=== PATIENT | male | born 1990 | race Caucasian/White ===

== ENCOUNTER 2016-12-29 15:34 | Inpatient (IN) | payer OTHER ==
[~2016-12-29] VITALS: Ht 182.9 cm; Wt 63.5 kg
[2016-12-29 17:15] VITALS: BP 130/86
[2016-12-29 17:25] LABS: *AMPHETAMINE, URINE NEGATIVE (NEGATIVE); *BARBITURATE, URINE NEGATIVE (NEGATIVE); *CANNABINOID, URINE POSITIVE (NEGATIVE); *COCCAINE, URINE POSITIVE (NEGATIVE); *OPIATE, URINE NEGATIVE (NEGATIVE); *PHENCYCLIDINE SCREEN,URINE NEGATIVE (NEGATIVE)
--- NOTE | 2016-12-29 17:30 | NUR ---
ADMISSION NOTE: 26 yo male admitted with ETOH and Adderall dependence. Pt is alert and oriented X4. Color good, skin warm and dry. Respirations even and unlabored. VS: B/P 130/86 P: 104 RR 18 T 97.6 Pulse OX 96%. Initial CIWA 6. Pt is 6 feet tall and weighs 140 pounds. Pt denies HI/SI. No prior detox/rehab admissions. Pt lives alone. Pt denies seizure history. NKA No home medications.Pt denies any psychiatric or medical problems. Pt denies having a PCP Skin is intact. Has several tattoos. Pt is a smoker. Smokes [address] Arevlao evaluated patient. Awaiting orders. Substance Use history: ETOH: Pt states he drinks a fifth and 1/2 a day of whisky X 4 months. Last drink today 1 shot and a beer@ 1410 Adderall: 30mg XR per day for 6 years. Last use 12-27-16 Cocaine: 1 or 2 lines twice a week for 1 year. Last use 3 line 12-28-16 Marijuana: 1 joint/day for 8 years. Last use 12-28-16
[2016-12-29] MEDS ORDERED: LOPERAMIDE HCL 2 MG CAPSULE PO PRN ×2 (18:45)
[2016-12-29] MEDS ORDERED: MAGNESIUM HYDROXIDE 30 ML LIQUID UDC PO PRN (18:45)
[2016-12-29] MEDS ORDERED: ONDANSETRON ODT 4 MG TAB.RAPDIS SL PRN (18:45)
[2016-12-29] MEDS ORDERED: DICYCLOMINE HCL 20 MG TABLET PO PRN (18:45)
[2016-12-29] MEDS ORDERED: ACETAMINOPHEN 325 MG TABLET PO PRN (18:45)
[2016-12-29] MEDS ORDERED: diphenhydrAMINE 25 MG/10 ML UDC PO PRN (18:45)
[2016-12-29] MEDS ORDERED: LORAZEPAM 1 MG TABLET PO PRN ×2 (18:45)
[2016-12-29] MEDS ORDERED: THIAMINE HCL 200 MG/2 ML VIAL IM ONE (18:45)
[2016-12-29] MEDS ORDERED: diphenhydrAMINE 1% CREAM 28.3 GM TUBE TP PRN (18:45)
[2016-12-29] MEDS ORDERED: MAG HYDROX/AL HYDROX/SIMETH 30 ML LIQUID UDC PO PRN (18:45)
[2016-12-29] MEDS ORDERED: ONDANSETRON 4 MG/2 ML VIAL IM PRN (18:45)
[2016-12-29] MEDS ORDERED: LORAZEPAM 2 MG/1 ML VIAL IM PRN (18:45)
[2016-12-29] MEDS ORDERED: MIRALAX 17 GM POWD.PACK PO PRN (18:45)
--- NOTE | 2016-12-29 19:05 | NUR ---
Start of Shift Patient Received. Patient is in group activities participating in a group meeting. Patient is a 26 year old male, admitted for ETOH Dependence under the care of Dr. Arevalo. Patient was placed on a 5 day Ativan taper with first dose to be administered at 2100. Patient verbalizes no known allergies, wishes to be full code, following a regular diet, placed on fall and seizure precautions. Skin is noted intact. Vitamin B1 injection endorsed over due to patient in group meeting. Admission CIWA noted to be 3. Patient also verbalizing generalized itching throughout the body. MD aware with new orders for STD Screening. All needs attended to promptly. Will continue plan of care as ordered.
--- NOTE | 2016-12-29 19:06 | NUR ---
END OF SHIFT NOTE: Report given to toe stapler nurse. 26 yo male admitted with ETOH and Adderall dependence. Pt is alert and oriented X4. Color good, skin warm and dry. Respirations even and unlabored. Pt placed on prn's only. Pt c/o "rash" all over body. Safety precautions observed. Call light within reach.
[2016-12-29 20:13] VITALS: BP 142/92
[2016-12-29 20:57] LABS: ALBUMIN 4.6 g/dL (3.4-5.0); BILIRUBIN,TOTAL 0.3 mg/dL (0.2-1.0); CALCIUM 9.1 mg/dL (8.5-10.1); CREATININE 1.3 mg/dL (0.6-1.3); POTASSIUM 4.1 mmol/L (3.5-5.1); TOTAL PROTEIN, SERUM 8.1 g/dL (6.4-8.2)
[2016-12-29] MEDS ORDERED: LORAZEPAM 1 MG TABLET PO SCH (21:00)
[2016-12-29 21:08] LABS: THYROID STIMULATING HORMONE 1.348 mIU/mL (0.358-3.740)
[2016-12-29 21:21] LABS: BASOPHILS % (AUTO) 0.9 % (0.0-2.0); EOSINOPHILS # (AUTO) 0.2 K/uL (0.0-0.7); EOSINOPHILS % (AUTO) 4.4 % (0.0-7.0); HEMATOCRIT 41.8 % (40.0-50.0); HEMOGLOBIN 14.6 g/dL (14.0-18.0); HIV-1 p24 ANTIGEN NON REACTIVE (NONREACTIVE); HIV-1/2 ANTIBODY NON REACTIVE (NONREACTIVE); LYMPHOCYTES # (AUTO) 1.6 K/uL (0.8-4.8); MEAN CORPUSCULAR HEMOGLOBIN 34.3 uug (27.0-31.0); MEAN CORPUSCULAR HGB CONC 35 g/dL (32.0-37.0); MEAN CORPUSCULAR VOLUME 97.9 fL (82.0-92.0); MONOCYTES # (AUTO) 0.4 K/uL (0.1-1.30); MONOCYTES % (AUTO) 7.2 % (0.0-11.0); NEUTROPHILS # (AUTO) 3.2 K/uL (1.8-8.9); NEUTROPHILS % (AUTO) 57.5 % (38.5-71.5); PLATELET COUNT (AUTO) 355 K/uL (150-450); RED BLOOD CELL COUNT(AUTO) 4.27 MIL/uL (4.70-6.10); RED CELL DISTRIBUTION WIDTH 12.7 % (11.5-14.5); WHITE BLOOD COUNT (AUTO) 5.4 K/uL (4.0-11.2)
[2016-12-29] MEDS: HYDROXYZINE PAMOATE 25 MG CAPSULE PO PRN (22:23)
[2016-12-29] MEDS: diphenhydrAMINE 50 MG CAPSULE PO PRN (22:24)
--- NOTE | 2016-12-29 22:30 | NUR ---
PRN Medication Administration Patient verbalizing increase anxiety and inability of falling asleep. PRN Vistaril and Benadryl administered. Will continue to monitor for effectiveness of medication.
[2016-12-30 00:10] VITALS: BP 118/62
--- NOTE | 2016-12-30 00:30 | NUR ---
PRN Medication Administration Patient is in bed sleeping. Breathing even and non labored. No signs of pain or discomfort. patient awakened for vitals and able to verbalize anxiety has subsided. PRN Vistaril noted to be effective. Patient able to fall back asleep. Will continue to monitor. Addendum: 12/30/16 at 0343 by CHARLES COYLE LVN PRN Medication Reassessment
[2016-12-30 04:20] VITALS: BP 117/69
--- NOTE | 2016-12-30 07:10 | NUR ---
End of Shift Patient is in bed sleeping. Breathing even and non labored. No signs of pain or discomfort noted. Patient continues on 5 day Ativan taper for ETOH Dependence. Patient was given PRN Vistaril and Benadryl with both medications noted to be effective. All needs attended to promptly. Will endorse to continue plan of care as ordered.
--- NOTE | 2016-12-30 07:15 | NUR ---
start of shift note: received pt from welder 2nd shift nurse pt is in stable condition no s/s of pain or discomfort. pt is in bed asleep, but able to arouse. [facility]/dependence. pt is to start a 5 day ativan taper, will monitor pt for any changes or A/R to taper medications. urine analysis for STD still pending. will encourage pt to join groups and activities. pts last ciwa 1 and slept 7 hours.
[2016-12-30] MEDS ORDERED: TUBERCULIN,PURIF.PROT.DERIV. 5 TU/0.1 ML TEST ID ONE (09:00)
[2016-12-30] MEDS: THIAMINE HCL 100 MG TABLET PO SCH (09:26)
[2016-12-30] MEDS: FOLIC ACID 1 MG TABLET PO SCH (09:26)
[2016-12-30] MEDS: MULTIVITAMINS,THERAPEUTIC TABLET PO SCH (09:26)
[2016-12-30] MEDS: LORAZEPAM 1 MG TABLET PO SCH ×4 (09:27→20:15)
[2016-12-30 09:33] VITALS: BP 115/76
--- NOTE | 2016-12-30 13:00 | NUR ---
CIWA DEFERRED PT WAS SLEEPING, V/S TAKEN AND WNL.
[2016-12-30 14:00] VITALS: BP 112/68
[2016-12-30 17:51] VITALS: BP 133/96
[2016-12-30] MEDS: IBUPROFEN 400 MG TABLET PO PRN (17:57)
[2016-12-30] MEDS: HYDROXYZINE PAMOATE 25 MG CAPSULE PO PRN (17:57)
--- NOTE | 2016-12-30 18:06 | NUR ---
PRN REASSESSMENT: PT VERBALIZED HE IS NOT FEELING WELL. RE-ASSESSED PT'S CIWA. CIWA TO BE NOTED AT 13. PRN ATIVAN 1 MG WAS ADMINISTERED, 400 MG OF MOTRIN AND 25 MG OF VISTARIL WAS ADMINISTERED. WILL RE-ASSESS PT EFFECTIVENESS OF MEDICATION. Addendum: 12/30/16 at 1841 by TRACI ROBLEDO RN PT EXHIBITED FLUSHING OF THE SKIN, VERBALIZED INCREASED ANXIETY, TREMULOUS, AND ITCHING PINS AND NEEDLES ON HIS GENERALIZED BODY.
[2016-12-30] MEDS ORDERED: LORAZEPAM 1 MG TABLET PO ONE (18:30)
--- NOTE | 2016-12-30 18:43 | NUR ---
END OF SHIFT NOTE/PRN RE-ASSESSMENT: PT IS ALERT AND ORIENTED AT THIS TIME IS EXHIBITING INCREASED WITHDRAWAL SYMPTOMS. [facility]H WITHDRAWAL/DEPENDENCE. PT'S LAST CIWA WAS NOTED TO BE 13. PRN'S WERE ADMINISTERED WITH MINIMAL EFFECT. PLACED A CALL TO TO RE-ASSES PT. HE THEN PUT IN A 1 TIME ORDER OF 2 MG ATIVAN AT 1830. PT THEN STATED HE WAS FEELING A LITTLE BIT BETTER AFTER MOTRIN,VISTARIL AND 1 MG OF ATIVAN ADMINISTERED. PT WAS SLEEPING INTERMITTENTLY THROUGHOUT THE SHIFT. PT'S V/S WNL. WILL ENDORSE TO PT WASTE DISPOSAL ATTENDANT NURSE.
[2016-12-30 20:00] VITALS: BP 117/59
--- NOTE | 2016-12-30 20:00 | NUR ---
Start of Shift Pt is a 26 year old male admitted for ETOH dependence, placed on 5 day Ativan taper. NKA, fall/seizure precautions, regular diet and full code. Upon assessment, pt is in bed but arousable, skin clammy/flushed, noted with moderate sweat, tremors observable, pt reports cold/hot flushes, reports pin/needles sensation. denies SOB/chest pain. Will administered scheduled medications. BP 117/59, pulse 68, SpO2 98%, respirations 16, temp 97.9. Safety measures in place, will continue to monitor.
[2016-12-31] VITALS: BP 116/71
[2016-12-31 04:00] VITALS: BP 112/68
--- NOTE | 2016-12-31 04:00 | NUR ---
Vital Signs BP 112/68, pulse 78, respirations 14, SpO2 99%, temp 98, no reports of pain. CIWA assessment deferred d/t pt sleeping, to assess while pt is awake as ordered. Safety measures in place, Will continue to monitor
--- NOTE | 2016-12-31 07:00 | NUR ---
End of Shift Pt is a 26 year old male admitted for ETOH dependence, placed on 5 day Ativan taper. NKA, fall/seizure precautions, regular diet and full code. During shift, pt presented with clammy/flushed skin, moderate sweat, observable tremors, reported cold/flushes with pins/needles sensation - scheduled taper medication administered, effective in management of s/s of withdrawal. CIWA 14 decreased to CIWA 12. No PRN medications administered during shift. VS stable, pt slept for 9hours, intake of 592 ml PO and voids x1. Safety measures in place, Endorsed to day shift nurse.
[2016-12-31 08:00] VITALS: BP 115/76
--- NOTE | 2016-12-31 08:00 | NUR ---
START OF SHIFT NOTE Received pt this am AOx4. Pt reports feeling tremulous, sweaty, anxious, agitated and lightheaded this morning. He states "this isn't a good morning for me." HOMERO 13 at 0800. Pt continues 5 day Ativan taper. Will administer morning medication to help decrease s/s of w/d. No PRNs given during the night per night nurse. Pt slept 9 hours last night. Encouraged pt to notify RN if s/s of w/d worsen. Pt in bed with bed in lowest position and locked and call aiken in reach. Will provide safe and supportive environment. Will continue to monitor.
[2016-12-31] MEDS: LORAZEPAM 1 MG TABLET PO SCH ×3 (09:01→21:53)
[2016-12-31] MEDS: THIAMINE HCL 100 MG TABLET PO SCH (09:01)
[2016-12-31] MEDS: FOLIC ACID 1 MG TABLET PO SCH (09:01)
[2016-12-31] MEDS: MULTIVITAMINS,THERAPEUTIC TABLET PO SCH (09:01)
[2016-12-31 09:08] LABS: HCV AB <0.1 s/co ratio (0.0-0.9); HEPATITIS B CORE AB, IgM Negative (Negative); HEPATITIS B SURFACE AG Negative (Negative)
[2016-12-31 12:00] VITALS: BP 131/77
[2016-12-31 16:00] VITALS: BP 128/73
[2016-12-31] MEDS ORDERED: GABAPENTIN 300 MG CAPSULE PO ONE (17:00)
[2016-12-31] MEDS: ESCITALOPRAM OXALATE 10 MG TABLET PO SCH (18:28)
--- NOTE | 2016-12-31 18:54 | NUR ---
END OF SHIFT Pt continues on 5 day Ativan taper. Last CIWA 8. Pt reports feeling anxious, tremulous, and lightheaded. EKG was complete and normal and Lexapro was administered per doctor order. Urethral swab was complete and sent to lab for STD check per order. TB test is to be read tomorrow. Pt has flat affect and congruent mood most of shift. Pt continues on fall and seizure precautions. All needed attended to promptly. Pt resting in bed AOx4, RR even and unlabored, bed locked and in lowest position. Call aiken within reach. Will pass report to oncoming nurse.
--- NOTE | 2016-12-31 19:20 | NUR ---
Start of Shift Pt is a 26 year old male admitted for ETOH dependence, placed on 5 day Ativan taper. Denies PMH, NKA, fall/seizure precautions, regular diet and full code. Pt is in bed, anxious, reports nausea, skin clammy/flushed, obvious sweat, tremors observable, pt is restless/fidgety, frequently shifting in bed while clutching groin and pointing to right side of chest, and stating, It hurts in my groin and in my chest on the right. Notified
[2016-12-31] MEDS: CLONIDINE HCL 0.1 MG TABLET PO PRN (19:25)
--- NOTE | 2016-12-31 19:25 | NUR ---
PRN Administration Received orders from d/t pt anxious, reports nausea, skin clammy/flushed, obvious sweat, tremors observable, pt is restless/fidgety, frequently shifting in bed while clutching groin and pointing to right side of chest, and stating, It hurts in my groin and in my chest on the right. Groin pain rated 10/10, BP 129/79, pulse 84, SpO2 100%, respirations 20, temp 97.9. HOMERO Garcia MD ordered Toradol inj 60mg/2ml x1 and Ativan 2mg x1. Medications administered. Clonidine 0.1mg PRN administered. Safety measures in place, Will continue to monitor effectiveness.
[2016-12-31] MEDS ORDERED: LORAZEPAM 1 MG TABLET PO ONE (19:45)
[2016-12-31] MEDS ORDERED: KETOROLAC TROMETHAMINE 60 MG INJ IM ONE (19:45)
[2016-12-31 20:00] VITALS: BP 129/79
--- NOTE | 2016-12-31 20:25 | NUR ---
PRN Reassessment Upon reassessment, pt is in bed, face flushed, pt is no longer restless/fidgety, no longer clutching groin or right side of chest area. Pt states, I dont feel pain any more in my groin. Pt also denies pain in right side chest area. Pt states, I just feel tired BP 104/63, pulse 72, SpO2 97%, respirations 17, temp 97.8. CIWA 12 Medications effective, needs met, safety measures in place, will continue to monitor.
[2016-12-31] MEDS: GABAPENTIN 300 MG CAPSULE PO SCH (21:53)
[2017-01-01] VITALS: BP 109/74
[2017-01-01 04:00] VITALS: BP 105/70
--- NOTE | 2017-01-01 07:00 | NUR ---
End of Shift Pt is a 26 year old male admitted for ETOH dependence, placed on 5 day Ativan taper. Denies PMH, NKA, fall/seizure precautions, regular diet and full code. During shift, at 1920, pt presented with anxiousness, reported nausea, skin clammy/flushed, obvious sweat, tremors observable, pt is restless/fidgety, frequently shifting in bed while clutching groin and pointing to right side of chest, and stating, It hurts in my groin and in my chest on the right, MD was notified. Obtained orders for Toradol inj 60mg/2ml x1, Ativan 2mg x1 and administered. Clonidine 0.1mg PRN also administered. Upon reassessment, medications were effective, pt was no longer restless/fidgety, no longer clutching groin or right side of chest area. Pt stated, I dont feel pain any more in my groin. Pt also denied pain in right side chest area. CIWA 19 decreased to CIWA 11. Scheduled medications also administered during shift, pt is complaint with medication regimen. Pt slept for 9 hours, intake of 828 ml PO and voids x1. Safety measures in place, Endorsed to day shift nurse.
[2017-01-01 08:00] VITALS: BP 121/74
--- NOTE | 2017-01-01 08:01 | NUR ---
START OF SHIFT NOTE Received pt this am AOx4. Pt states "I actually feel okay right now." Last CIWA 11 per night nurse. Pt continues 5 day Ativan taper. PRN Toradol, Ativan, and Clonidine given per night nurse with effectiveness. Pt slept 9 hours last night. TB test read this morning and was negative. Encouraged pt to notify RN if s/s of w/d worsen. Pt in bed with bed in lowest position and locked and call aiken in reach. Will provide safe and supportive environment. Will continue to monitor.
[2017-01-01] MEDS: ESCITALOPRAM OXALATE 10 MG TABLET PO SCH (09:14)
[2017-01-01] MEDS: GABAPENTIN 300 MG CAPSULE PO SCH ×2 (09:15→14:50)
[2017-01-01] MEDS: MULTIVITAMINS,THERAPEUTIC TABLET PO SCH (09:15)
[2017-01-01] MEDS: FOLIC ACID 1 MG TABLET PO SCH (09:15)
[2017-01-01] MEDS: LORAZEPAM 1 MG TABLET PO SCH ×4 (09:15→20:33)
[2017-01-01] MEDS: THIAMINE HCL 100 MG TABLET PO SCH (09:15)
[2017-01-01 12:00] VITALS: BP 121/74
[2017-01-01 16:00] VITALS: BP 133/82
[2017-01-01] MEDS: HYDROXYZINE PAMOATE 25 MG CAPSULE PO PRN (18:50)
--- NOTE | 2017-01-01 19:00 | NUR ---
END OF SHIFT/PRN Vistaril Pt continues on 5 day Ativan taper. Last CIWA 6. Pt affect is brighter today than yesterday, he appears less flat. He states he feels much better today. At 1850, pt comes to nursing station reporting he is starting to feel really anxious. PRN Vistaril given to promptly.. Will endorse to vision impaired teacher to monitor effectiveness. Pt continues on fall and seizure precautions with side rails padded. All needed attended to promptly. Pt resting in bed AOx4, RR even and unlabored, bed locked and in lowest position. Call aiken within reach. Will pass report to oncoming nurse.
[2017-01-01 20:00] VITALS: BP 125/81
--- NOTE | 2017-01-01 20:00 | NUR ---
Start of Shift/Reassessment of Vistaril PRN Pt is a 26 year old male admitted for ETOH dependence, placed on 5 day Ativan taper. NKA, fall/seizure precautions, regular diet and full code. Upon assessment, pt is in bed, skin warm/flushed, noted with moderate sweat, pt reports mildly lightheaded, mild reports pin/needles sensation with muscle aches. Upon reassessment of Vistaril administered during day shift, pt states, Im not as bad as I was. Pt denies SOB/chest pain, respirations unlabored, denies n/v/d. Will administered scheduled medications. Safety measures in place, will continue to monitor.
[2017-01-01] MEDS ORDERED: GABAPENTIN 300 MG CAPSULE PO SCH (21:00)
[2017-01-01 22:00] LABS: *BILIRUBIN,URIN NEGATIVE (NEGATIVE); *BLOOD, URINE Trace-lysed (NEGATIVE); *CLARITY,URINE CLEAR (CLEAR); *COLOR,URINE YELLOW (YELLOW); *KETONES,URINE NEGATIVE (NEGATIVE); *PROTEIN,URINE 2+ (NEGATIVE); *UROBILINOGEN,URINE 0.2 E.U./dl (NORMAL); LEUKOCYTE ESTERASE ,URINE NEGATIVE (NEGATIVE); NITRITE, URINE NEGATIVE (NEGATIVE); PH,URINE 5.5 (5.0-8.0); UGLUCOSE NEGATIVE (NEGATIVE)
[2017-01-01 22:13] LABS: WBC,URINE 0-3 /HPF (0-3)
[2017-01-01 22:14] LABS: MUCUS,URINE MANY /LPF (0-FEW); SQUAMOUS EPITHELIAL CELL,UR FEW /HPF (NONE SEEN)
[2017-01-02] VITALS: BP 127/65
--- NOTE | 2017-01-02 | NUR ---
Vital Signs BP 127/65, pulse 86, respirations 16, SpO2 99%, temp 97.8, no reports of pain 0/10 CIWA assessment deferred d/t pt sleeping, to assess while pt is awake as ordered. Safety measures in place, Will continue to monitor.
[2017-01-02 04:00] VITALS: BP 102/71
--- NOTE | 2017-01-02 04:00 | NUR ---
Vital Signs BP 102/71, Pulse 67, respirations 16, Spo2 98%, temp 97.9, no reports of pain CIWA deferred d/t pt sleeping to assess while awake as ordered. Safety measures in place, call light within reach, side rails up x2, bed locked and in low position. Will continue to monitor.
--- NOTE | 2017-01-02 07:00 | NUR ---
End of Shift Pt is a 26 year old male admitted for ETOH dependence, placed on 5 day Ativan taper. NKA, fall/seizure precautions, regular diet and full code. During shift, pt presented with warm/flushed flushed, noted with moderate sweat, lightheaded, pin/needles sensation with muscle aches scheduled taper medications administered, CIWA 8. No PRNs administered. Pt slept for 7 hours, intake of 1396 ml PO and voids x2. Pt continues on Ativan taper. VS stable, Safety measures in place, call light within reach, side rails up x2, bed locked and in low position. Endorsed to day shift nurse.
--- NOTE | 2017-01-02 07:06 | NUR ---
Start of Shift Endorsement received from nightshift nurse. Pt is a 26 y/o male admitted to [facility] for alcohol dependence. Pt has been placed on a 5 day Ativan taper. Pt is moderately withdrawing at this time AEB CIWA 8 at 0800. Pt did not receive any PRN medications. Pt slept 7 hours, reports feeling rested. VS WNL, FULL Code. PT is alert and oriented x4. Pt is in STABLE condition at this time. Remains compliant with medication and diet regimen. All needs have been met, All safety measures in place per hospital policy. Bed in lowest position, side rails up x2, call-light within reach. Will continue to monitor
[2017-01-02 08:00] VITALS: BP 128/64
[2017-01-02] MEDS: MULTIVITAMINS,THERAPEUTIC TABLET PO SCH (08:58)
[2017-01-02] MEDS: FOLIC ACID 1 MG TABLET PO SCH (08:58)
[2017-01-02] MEDS: ESCITALOPRAM OXALATE 10 MG TABLET PO SCH (08:58)
[2017-01-02] MEDS: THIAMINE HCL 100 MG TABLET PO SCH (08:58)
[2017-01-02] MEDS: LORAZEPAM 1 MG TABLET PO SCH ×3 (08:58→20:21)
[2017-01-02] MEDS ORDERED: GABAPENTIN 300 MG CAPSULE PO SCH (09:00)
[2017-01-02] MEDS: CLONIDINE HCL 0.1 MG TABLET PO PRN (10:50)
[2017-01-02] MEDS: HYDROXYZINE PAMOATE 25 MG CAPSULE PO PRN (10:50)
--- NOTE | 2017-01-02 10:51 | NUR ---
PRN Vistaril and Clonidine given: Patient noted with complains of increased anixiety, chills, agitation and tremors. VS stable. Non-pharmacological interventions were provided but did not help. Medicated patient with PRN Vistaril and Clonidine as ordered. Will monitor for effectiveness.
[2017-01-02] MEDS ORDERED: HYDROXYZINE PAMOATE 25 MG CAPSULE PO PRN (14:00)
[2017-01-02] MEDS: GABAPENTIN 300 MG CAPSULE PO SCH ×2 (15:54→20:21)
[2017-01-02 16:00] VITALS: BP 123/79
--- NOTE | 2017-01-02 19:01 | NUR ---
End of Shift Endorsement given to nightshift nurse. Pt is a 26 y/o male admitted to [facility] for alcohol dependence. Pt has been placed on a 5 day Ativan taper. Pt is moderately withdrawing at this time AEB CIWA 3 at 0800. Pt received PRN Vistaril and Clonidine for withdrawal symptoms and reported panic attack. Medication was effective and pt reports being comfortable at this time. Pt participated in groups and activities. Intake: 2000ml, Void x5, BM x0. VS WNL, FULL Code. PT is alert and oriented x4. Pt is in STABLE condition at this time. Remains compliant with medication and diet regimen. All needs have been met, All safety measures in place per hospital policy. Bed in lowest position, side rails up x2, call-light within reach. Will continue to monitor
--- NOTE | 2017-01-02 19:30 | NUR ---
START OF SHIFT NOTE : Pt is a 26 y/o male admitted to [facility] for alcohol dependence. Pt has been placed on a 5 day Ativan taper. Pt is moderately withdrawing at this time AEB CIWA 2 at 1600. PT is alert and oriented x4. Pt is in STABLE condition at this time. Remains compliant with medication and diet regimen Pt denies nausea, vomiting and diarrhea. V/S remain WNL. RR=16, even and unlabored, lungs clear upon auscultation, abdomen soft and non- distended. Safety measures in place : bed on lowest position with side rails x2 up for safety, call light within reach. Will continue to monitor closely and offer help.
[2017-01-02 20:00] VITALS: BP 119/81
[2017-01-02] MEDS: diphenhydrAMINE 50 MG CAPSULE PO PRN (20:21)
[2017-01-02] MEDS: IBUPROFEN 400 MG TABLET PO PRN (20:21)
--- NOTE | 2017-01-02 21:00 | NUR ---
PRN MOTRIN, VISTARIL, BENADRYL Pt. complains of body ache 6/10, increased level of anxiety, sleeplessness. PRN MOTRIN, VISTARIL, BENADRYL given as ordered .Safety measures in place : bed on lowest position with side rails x2 up for safety, call light within reach. Will continue to monitor closely and offer help.
--- NOTE | 2017-01-02 21:55 | NUR ---
REASSESSMENT PRN GRISEL OCHOA BENADRYL Pt. confirms decreased level of pain to 2-3/10, decreased level of anxiety, is ready to sleep.Safety measures in place : bed on lowest position with side rails x2 up for safety, call light within reach. Will continue to monitor closely and offer help.
[2017-01-03] VITALS: BP 110/65
[2017-01-03 04:00] VITALS: BP 108/54
--- NOTE | 2017-01-03 06:46 | NUR ---
END OF SHIFT NOTE : Pt is a 26 y/o male admitted to [facility] for alcohol dependence. Pt has been placed on a 5 day Ativan taper. Pt is moderately withdrawing at this time . PT is alert and oriented x4. Pt is in STABLE condition at this time.Pt remains compliant with the treatment plan. Pt denies nausea, vomiting and diarrhea.PRN Benadryl, Vistaril, Motrin were given during my shift. V/S remain WNL. RR=16, even and unlabored, lungs clear upon auscultation, abdomen soft and non- distended. LAST CIWA= 2 at 0400 , INTAKE= 2057 ml, voided x 3, slept 8 hours. Safety measures in place : bed on lowest position with side rails x2 up for safety, call light within reach. Will continue to monitor closely and offer help.
--- NOTE | 2017-01-03 07:01 | NUR ---
Start of Shift Endorsement received from nightshift nurse. Pt is a 26 y/o male admitted to [facility] for alcohol dependence. Pt has been placed on a 5 day Ativan taper. Pt is mildly withdrawing at this time AEB CIWA 2 at 0400. Pt received PRN Vistaril, Benadryl and Motrin. Pt slept 8 hours, reports feeling rested. VS WNL, FULL Code. PT is alert and oriented x4. Pt is in STABLE condition at this time. Remains compliant with medication and diet regimen. All needs have been met, All safety measures in place per hospital policy. Bed in lowest position, side rails up x2, call-light within reach. Will continue to monitor
[2017-01-03 07:59] LABS: CHLAMYDIA TRACHOMATIS NAA Negative (Negative); NEISSERIA GONORRHOEAE NAA Negative (Negative)
[2017-01-03 08:00] VITALS: BP 98/59
[2017-01-03 08:54] LABS: BASOPHILS % (AUTO) 0.5 % (0.0-2.0); EOSINOPHILS # (AUTO) 0.5 K/uL (0.0-0.7); EOSINOPHILS % (AUTO) 5.1 % (0.0-7.0); HEMATOCRIT 43.8 % (40.0-50.0); HEMOGLOBIN 15.3 g/dL (14.0-18.0); LYMPHOCYTES # (AUTO) 2.9 K/uL (0.8-4.8); LYMPHOCYTES % (AUTO) 32.2 % (20.5-51.5); MEAN CORPUSCULAR HEMOGLOBIN 34.8 uug (27.0-31.0); MEAN CORPUSCULAR HGB CONC 35 g/dL (32.0-37.0); MEAN CORPUSCULAR VOLUME 99.3 fL (82.0-92.0); MONOCYTES # (AUTO) 0.6 K/uL (0.1-1.30); MONOCYTES % (AUTO) 7.1 % (0.0-11.0); NEUTROPHILS # (AUTO) 4.9 K/uL (1.8-8.9); NEUTROPHILS % (AUTO) 55.1 % (38.5-71.5); PLATELET COUNT (AUTO) 317 K/uL (150-450); RED CELL DISTRIBUTION WIDTH 12.9 % (11.5-14.5); WHITE BLOOD COUNT (AUTO) 8.9 K/uL (4.0-11.2)
[2017-01-03 09:06] LABS: ALBUMIN 4.6 g/dL (3.4-5.0); BILIRUBIN,DIRECT 0.1 mg/dL (0.0-0.2); BILIRUBIN,TOTAL 0.4 mg/dL (0.2-1.0); CALCIUM 9.2 mg/dL (8.5-10.1); CREATININE 1.3 mg/dL (0.6-1.3); MAGNESIUM 2.1 mg/dL (1.8-2.4); PHOSPHOROUS 4.6 mg/dL (2.5-4.9); POTASSIUM 3.8 mmol/L (3.5-5.1); TOTAL PROTEIN, SERUM 8.1 g/dL (6.4-8.2)
[2017-01-03] MEDS: LORAZEPAM 1 MG TABLET PO SCH ×2 (09:10→20:20)
[2017-01-03] MEDS: THIAMINE HCL 100 MG TABLET PO SCH (09:10)
[2017-01-03] MEDS: ESCITALOPRAM OXALATE 10 MG TABLET PO SCH (09:10)
[2017-01-03] MEDS: FOLIC ACID 1 MG TABLET PO SCH (09:11)
[2017-01-03] MEDS: MULTIVITAMINS,THERAPEUTIC TABLET PO SCH (09:11)
[2017-01-03] MEDS: GABAPENTIN 300 MG CAPSULE PO SCH ×3 (09:11→20:21)
[2017-01-03 10:40] LABS: EOSINOPHILS % (MANUAL) 6 % (0-8); LYMPHOCYTES % (MANUAL) 34 % (20-40); MONOCYTES % (MANUAL) 7 % (2-10); NEUTROPHILS % (MANUAL) 53 % (42-75)
[2017-01-03 12:00] VITALS: BP 119/68
[2017-01-03 16:00] VITALS: BP 107/59
--- NOTE | 2017-01-03 19:19 | NUR ---
End of Shift Endorsement given to nightshift nurse. Pt is a 26 y/o male admitted to [facility] for alcohol dependence. Pt has been placed on a 5 day Ativan taper. Pt is moderately withdrawing at this time AEB CIWA 2 at 1600. Pt did not receive any prn medications. Pt is tolerating the taper well and reports readiness for sobriety. Pt participated in groups and activities. Intake: 3200ml, Void x4, BM x1. VS WNL, FULL Code. PT is alert and oriented x4. Pt is in STABLE condition at this time. Remains compliant with medication and diet regimen. All needs have been met, All safety measures in place per hospital policy. Bed in lowest position, side rails up x2, call-light within reach. Will continue to monitor
--- NOTE | 2017-01-03 19:30 | NUR ---
START OF SHIFT NOTE : Pt is a 26 y/o male admitted to [facility] for alcohol dependence. Pt has been placed on a 5 day Ativan taper, TOLERATING WELL. Last CIWA=2 at 1600. Pt participated in groups and activities. VS WNL, FULL Code. PT is alert and oriented x4. Pt is in STABLE condition at this time. Remains compliant with medication and diet regimen.Safety measures in place : bed on lowest position with side rails x2 up for safety, call light within reach. Will continue to monitor closely and offer help.
[2017-01-03 20:00] VITALS: BP 146/95
[2017-01-03] MEDS: diphenhydrAMINE 50 MG CAPSULE PO PRN (20:21)
--- NOTE | 2017-01-03 21:00 | NUR ---
PRN BENADRYL Pt complains of sleeplessness, PRN BENADRYL given as ordered. Non-pharmacological measures not effective. Safety measures in place : bed on lowest position with side rails x2 up for safety, call light within reach. Will continue to monitor closely and offer help.
--- NOTE | 2017-01-03 21:55 | NUR ---
REASSESSMENT CIRILOL : Pt. is sleeping, RR=16, unlabored and even. Safety measures in place : bed on lowest position with side rails x2 up for safety, call light within reach. Will continue to monitor closely and offer help.
[2017-01-04 04:00] VITALS: BP 119/61
--- NOTE | 2017-01-04 06:47 | NUR ---
END OF SHIFT NOTE : Pt is a 26 y/o male admitted to [facility] for alcohol dependence. Pt has been placed on a 5 day Ativan taper. Pt is moderately withdrawing at this time . PT is alert and oriented x4. Pt is in STABLE condition at this time. Pt remains compliant with the treatment plan. Pt denies nausea, vomiting and diarrhea.PRN Benadryl, was given during my shift. V/S remain WNL. RR=16, even and unlabored, lungs clear upon auscultation, abdomen soft and non- distended. LAST CIWA= 2 at 0400 , INTAKE= 1157 ml, voided x 2, slept 6 hours. Safety measures in place : bed on lowest position with side rails x2 up for safety, call light within reach. Will continue to monitor closely and offer help.
--- NOTE | 2017-01-04 07:30 | NUR ---
Start of shift note; Patient is AOX4. Patient is a 26 y/o male admitted on 12/29/16 for ETOH/Cocaine dependence. Patient is on full code status, NKA, regular diet. Patient was placed on a 5 day Ativan taper, no adverse reactions noted. Skin is intact. Patient is on fall and seizure precautions. Will continue to monitor patient.
[2017-01-04 08:00] VITALS: BP 120/71
[2017-01-04] MEDS: ESCITALOPRAM OXALATE 10 MG TABLET PO SCH (08:25)
[2017-01-04] MEDS: FOLIC ACID 1 MG TABLET PO SCH (08:26)
[2017-01-04] MEDS: GABAPENTIN 300 MG CAPSULE PO SCH ×3 (08:26→21:34)
[2017-01-04] MEDS: MULTIVITAMINS,THERAPEUTIC TABLET PO SCH (08:26)
[2017-01-04] MEDS: THIAMINE HCL 100 MG TABLET PO SCH (08:26)
[2017-01-04 12:00] VITALS: BP 127/88
[2017-01-04] MEDS ORDERED: DIPH50CA37 PO (13:00)
[2017-01-04] MEDS ORDERED: ESCI10TA PO (13:00)
[2017-01-04] MEDS ORDERED: Gabapentin PO (13:00)
[2017-01-04] MEDS ORDERED: HYDR-3895 PO (13:00)
[2017-01-04] MEDS ORDERED: CEFTRIAXONE 500 MG VIAL IM ONE (14:30)
[2017-01-04] MEDS ORDERED: AZITHROMYCIN 250 MG TABLET PO ONE ×2 (14:30→14:35)
--- NOTE | 2017-01-04 14:30 | NUR ---
MD order; ordered Rocephin 250mg IM and Zithromax 1000mg PO for disseminated gonorrhea. Order carried out and given. Will continue to monitor patient.
[2017-01-04 16:00] VITALS: BP 128/80
--- NOTE | 2017-01-04 16:51 | NUR ---
PRN medication; Patient is complaining of stomach cramps, PRN Bentyl 20mg PO given. Will continue to monitor patient.
[2017-01-04 17:19] LABS: *AMPHETAMINE, URINE NEGATIVE (NEGATIVE); *BARBITURATE, URINE NEGATIVE (NEGATIVE); *CANNABINOID, URINE NEGATIVE (NEGATIVE); *COCCAINE, URINE NEGATIVE (NEGATIVE); *OPIATE, URINE NEGATIVE (NEGATIVE); *PHENCYCLIDINE SCREEN,URINE NEGATIVE (NEGATIVE)
--- NOTE | 2017-01-04 17:51 | NUR ---
RE-assessment; Patient denies any stomach cramps at this time. PRN medication is effective.
--- NOTE | 2017-01-04 18:27 | NUR ---
End of shift note; End of shift note; Patient is AOX4. Patient remained compliant with treatment plan. Medications were effective in reducing withdrawal symptoms. Patient's last CIWA is 0 at 1600. Patient is on fall and seizure precaution. Patient is medically cleared for discharge tomorrow. Bed in lowest position,call light within reach. Met all patient's needs.
--- NOTE | 2017-01-04 19:30 | NUR ---
START OF SHIFT NOTE : Pt is a 26 y/o male admitted to [facility] for alcohol dependence. Pt completed his 5 day Ativan taper, TOLERATed WELL. Last CIWA=0 at 1600. Pt participated in groups and activities. VS WNL, FULL Code. PT is alert and oriented x4. Pt is in STABLE condition at this time. Remains compliant with medication and diet regimen. Safety measures in place : bed on lowest position with side rails x2 up for safety, call light within reach. Will continue to monitor closely and offer help.
[2017-01-04 20:00] VITALS: BP 139/89
--- NOTE | 2017-01-05 06:49 | NUR ---
END OF SHIFT NOTE : Pt is a 26 y/o male admitted to [facility] for alcohol dependence. Pt has been placed on a 5 day Ativan taper. Pt is moderately withdrawing at this time . PT is alert and oriented x4. Pt is in STABLE condition at this time. Pt remains compliant with the treatment plan. Pt denies nausea, vomiting and diarrhea.PRN Benadryl, was given during my shift. V/S remain WNL. RR=16, even and unlabored, lungs clear upon auscultation, abdomen soft and non- distended. LAST CIWA= 0 at 0400 , INTAKE= 891ml, voided x 2, slept 7 hours. Pt. will be D/C today , UDS provided. Safety measures in place : bed on lowest position with side rails x2 up for safety, call light within reach. Will continue to monitor closely and offer help.
--- NOTE | 2017-01-05 07:30 | NUR ---
Start of shift Report received from machinist 2nd shift nurse. Pt is a 26 y/o male admitted on 12/29/16 for alcohol dependence and medically supervised withdrawals . Pt is full code regular diet on fall precautions, denies any history of seizures. Pt denies nay PMH. Pt has completed his 5 day Ativan taper, tolerated well and is going to be discharged today . Last CIWA=0 at 0400. Pt did not receive any PRN medications last night. Pt slept a total of 7 hours. All safety measures in place will continue to monitor and provide support.
[2017-01-05] MEDS: GABAPENTIN 300 MG CAPSULE PO SCH (09:08)
[2017-01-05] MEDS: THIAMINE HCL 100 MG TABLET PO SCH (09:09)
[2017-01-05] MEDS: MULTIVITAMINS,THERAPEUTIC TABLET PO SCH (09:09)
[2017-01-05] MEDS: ESCITALOPRAM OXALATE 10 MG TABLET PO SCH (09:09)
[2017-01-05] MEDS: FOLIC ACID 1 MG TABLET PO SCH (09:09)
--- NOTE | 2017-01-05 09:39 | NUR ---
DISCHARGE NOTE Pt is in stable condition. Vitals WNL, Pt alert and oriented x4, skin intact, Pt denies any SI/HI. All discharge paperwork completed dated and signed. Pt educated about discharge instructions, what to do after discharge when to contact MD as well as the s/s reportable to MD, pt verbalized understanding. Pt was provided with all of his discharge paperwork. Pt's last CIWA:0 taken at 0800. Pt was discharged from [facility] on 01/05/17 at 0930. Pt discharged to [facility]. Pt left the building with all of his belongings, prescriptions and medications. MD and psychiatrist have been contacted notified and aware of pt's d/c.
== END 2017-01-05 09:37 | disposition other institution (70) | DRG 895 ==
LOC: SRC 15:34
PROVIDERS: ADMIT Internal Medicine; ATTEND Internal Medicine
PROC: HZ2ZZZZ Detoxification Services for Substance Abuse Treatment (ICD-10-PCS; principal; 2016-12-29)
PROC: HZ41ZZZ Group Counseling for Substance Abuse Treatment, Behavioral (ICD-10-PCS; 2016-12-30)
PROC: HZ31ZZZ Individual Counseling for Substance Abuse Treatment, Behavioral (ICD-10-PCS; 2016-12-31)
DX: F10.230 Alcohol dependence with withdrawal, uncomplicated (principal); F33.1 Major depressive disorder, recurrent, moderate; N39.0 Urinary tract infection, site not specified; F15.20 Other stimulant dependence, uncomplicated; K70.10 Alcoholic hepatitis without ascites; Y90.9 Presence of alcohol in blood, level not specified; Z72.51 High risk heterosexual behavior; G47.00 Insomnia, unspecified; Z81.1 Family history of alcohol abuse and dependence; Z81.3 Family history of other psychoactive substance abuse and dependence; Z81.8 Family history of other mental and behavioral disorders; F17.210 Nicotine dependence, cigarettes, uncomplicated; F41.0 Panic disorder [episodic paroxysmal anxiety]; F90.9 Attention-deficit hyperactivity disorder, unspecified type; R31.29 Other microscopic hematuria; F14.10 Cocaine abuse, uncomplicated; F12.90 Cannabis use, unspecified, uncomplicated; R21 Rash and other nonspecific skin eruption
CPT/HCPCS: 36415; 70030-TC; 80307; 80349; 80353; 83690; 83735; 84100; 84443; 85025; 86592; 86705; 86803; 87340; 87491; 87591; 87806; 93005; A4663; G6040-TC; J0696; J1885; J3411; Q0144; Q0163